=== PATIENT | male | born 1980 | race Hispanic/Latino ===

== ENCOUNTER 2018-09-23 23:50 | Emergency (ER) | payer BC ==
[2018-09-24 00:01] VITALS: TEMP 98.3
--- NOTE | 2018-09-24 01:10 | C.PDOC ---
History Of Present Illness 37 year old male presents to the ED for evaluation of right hand injury sustained yesterday. Patient states he accidentally slammed his right hand into a cellar door. He initially had mild swelling to his right 5th knuckle, but symptoms progressed to moderate pain and swelling today. Patient has history of right wrist fracture with ORIF. He denies extremity numbness/weakness or any other injuries at this time. - HPI Time Seen by Provider: 09/24/18 00:06 Chief Complaint (Nursing): Trauma History Per: Patient History/Exam Limitations: no limitations Onset/Duration Of Symptoms: Hrs Location Of Injury: Right: Hand Additional History Per: Patient Past Medical History Reviewed: Historical Data, Nursing Documentation, Vital Signs Vital Signs: Last Vital Signs Temp 98.3 F 09/23/18 23:57 Pulse 73 09/23/18 23:57 Resp 14 09/23/18 23:57 BP 115/70 09/23/18 23:57 Pulse Ox - Medical History PMH: No Chronic Diseases Surgical History: No Surg Hx Family History: States: Unknown Family Hx - Social History Hx Alcohol Use: Yes Hx Substance Use: No Review Of Systems Musculoskeletal: Positive for: Hand Pain (right) Neurological: Negative for: Weakness, Numbness Physical Exam - Physical Exam Appears: Non-toxic, No Acute Distress Skin: Warm, Dry Extremity: No Normal ROM (slightly limited in right hand secondary to pain ), Capillary Refill (less than 2 seconds ), Other (moderate swelling, tenderness and ecchymosis to the lateral aspect of the right hand, at the 4th and 5th MCP) Pulses: Left Radial: Normal, Right Radial: Normal Neurological/Psych: Normal Speech, Normal Cognition, Normal Sensation (right hand ) ED Course And Treatment O2 Sat by Pulse Oximetry: 97 (on RA) Pulse Ox Interpretation: Normal - Other Rad RT Hand X-Ray: Interpreted by Me, Viewed By Me Interpretation: Fx of 5th MCP, hardware to right radial bone Progress Note: Right hand XR ordered and reviewed. XR shows comminuted fracture of the 5th MCP. Patient was placed in ulnar guttar splint by perinatal technician and was checked by me, placed in sling. CD of images given for follow up. On reassessme nt, patient is resting comfortably, showing no signs of distress and is stable for discharge. Patient is provided with CD of hand XR, and advised to follow up with hand surgeon within 1-2 days for further evaluation. Disposition Counseled Patient/Family Regarding: Diagnosis, Need For Followup - Disposition Referrals: Fabiola Goncalves MD [Staff Provider] - Disposition: HOME/ ROUTINE Disposition Time: 01:08 Condition: STABLE Additional Instructions: Keep splint until seen by Hand doctor / orthopedist Take motrin or tylenol for pain Elevate arm in sling Continue ICE pack Return to ER if worse Instructions: Boxer's Fracture (DC) Forms: [employer] (Romanian) - Clinical Impression Clinical Impression: Closed boxer's fracture, Closed right hand fracture - PA / IMPROVEMENT SPEC / Resident Statement MD/DO has reviewed & agrees with the documentation as recorded. - Scribe Statement The provider has reviewed the documentation as recorded by the Scribe (Karon Castro) All medical record entries made by the Scribe were at my direction and personally dictated by me. I have reviewed the chart and agree that the record accurately reflects my personal performance of the history, physical exam, medical decision making, and the department course for this patient. I have also personally directed, reviewed, and agree with the discharge instructions and disposition.
[2018-09-24 02:02] VITALS: BP 124/78; PULSE 96; RESP 20; O2SAT 97
--- NOTE | 2018-09-24 14:48 | RAD ---
PROCEDURE: Right Hand Radiographs. HISTORY: trauma, pain and swelling COMPARISON: None. FINDINGS: BONES: Comminuted mildly angulated fracture distal 5th metacarpal. ORIF distal radial fracture. No other acute fracture identified. JOINTS: Normal. No osteoarthritic changes. SOFT TISSUES: Normal. OTHER FINDINGS: None. IMPRESSION: Comminuted mildly angulated fracture distal 5th metacarpal.
== END 2018-09-24 01:45 | disposition home or self-care (01) ==
LOC: C.ER 23:50 → MERGE 23:50 → C.ER 09-24 01:45
DX: S62.396A Other fracture of fifth metacarpal bone, right hand, initial encounter for closed fracture (principal); W23.0XXA Caught, crushed, jammed, or pinched between moving objects, initial encounter